=== PATIENT | male | born 1995 | race Hispanic/Latino ===

== ENCOUNTER 2021-05-25 07:38 | Emergency (ER) | payer SELFPAY ==
[2021-05-25 07:55] VITALS: BP 106/69
[2021-05-25 08:31] LABS: Bilirubin,Urine NEG (Negative); Blood,Urine NEG (Negative); Color,Urine Yellow (Yellow); Mucus,Urine FEW /HPF; Protein,Urine <15 mg/dL mg/dL (Negative); Urobilinogen,Urine < 2.0 mg/dL (<2.0)
[2021-05-25 08:57] LABS: WBC,Urine > 182.0 /HPF (0.0-6.0)
[2021-05-25] MEDS ORDERED: LIDOCAINE-MPF (1%) 10 MG/1 ML VIAL 5 ML INFILTRATI ONE (09:00)
[2021-05-25] MEDS ORDERED: AZITHROMYCIN 250 MG TAB PO ONE (09:01)
--- NOTE | 2021-05-25 09:29 | Emergency Department Report ---
ED Male HPI - General Chief complaint: Urogenital-Male Stated complaint: DISCHARGE PENIS Time Seen by Provider: 05/25/21 08:02 Source: patient Mode of arrival: Ambulatory Limitations: No Limitations - History of Present Illness Initial comments: 25-year-old white male with no past medical history presents to the emergency department for evaluation of 2-week history of worsening penile discharge with dysuria. He states that a few weeks ago he had unprotected sex with a new partner. He denies fever and abdominal pain. MD Complaint: penile discharge, dysuria -: Gradual, week(s) (2) Location: penis Radiation: none Severity scale (0 -10): 2 Quality: aching Consistency: intermittent Improves with: none Worsens with: urination new sexual partner discharge, dysuria. denies: swelling, mass, rash, urinary retention, blood in urine, fever, nausea/vomiting - Related Data Sexually active: Yes Previous Rx's Medication Instructions Recorded Last Taken Type HYDROcodone/APAP 5-325 [Hurricane 1 each PO Q6HR PRN #15 tablet 04/20/15 Unknown Rx 5/325] Ketorolac [Toradol] 10 mg PO Q6H PRN #15 tablet 04/20/15 Unknown Rx Ondansetron [Zofran Odt] 4 mg PO Q8HR #10 tab.rapdis 04/20/15 Unknown Rx Ibuprofen [Motrin] 600 mg PO Q8H PRN #20 tablet 04/24/15 Unknown Rx cephALEXin [Keflex] 500 mg PO Q6HR #28 capsule 04/24/15 Unknown Rx Allergies Allergy/AdvReac Type Severity Reaction Status Date / Time No Known Allergies Allergy Verified 04/19/15 22:21 ED Review of Systems ROS: Stated complaint: DISCHARGE PENIS Other details as noted in HPI Comment: All other systems reviewed and negative Constitutional: denies: chills, fever Eyes: denies: eye pain, eye discharge ENT: denies: ear pain, throat pain Respiratory: denies: shortness of breath Cardiovascular: denies: chest pain Endocrine: no symptoms reported Gastrointestinal: denies: abdominal pain, nausea, vomiting Genitourinary: dysuria, discharge. denies: urgency, frequency, hematuria, te sticular pain Musculoskeletal: denies: back pain Skin: denies: rash, lesions Neurological: denies: headache, weakness Psychiatric: denies: anxiety, depression Hematological/Lymphatic: denies: easy bleeding, easy bruising ED Past Medical Hx - Surgical History Additional Surgical History: Tonsillectomy. urethral surg to open age 5 - Social History Smoking Status: Current Some Day Smoker Substance Use Type: None - Medications Home Medications: Home Medications Medication Instructions Recorded Confirmed Last Taken Type HYDROcodone/APAP 5-325 [Hurricane 1 each PO Q6HR PRN #15 tablet 04/20/15 Unknown Rx 5/325] Ketorolac [Toradol] 10 mg PO Q6H PRN #15 tablet 04/20/15 Unknown Rx Ondansetron [Zofran Odt] 4 mg PO Q8HR #10 tab.rapdis 04/20/15 Unknown Rx Ibuprofen [Motrin] 600 mg PO Q8H PRN #20 tablet 04/24/15 Unknown Rx cephALEXin [Keflex] 500 mg PO Q6HR #28 capsule 04/24/15 Unknown Rx ED Physical Exam - General Limitations: No Limitations General appearance: alert, in no apparent distress - Head Head exam: Present: atraumatic, normocephalic - Eye Eye exam: Present: normal appearance. Absent: conjunctival injection - Neck Neck exam: Present: normal inspection. Absent: lymphadenopathy - Respiratory Respiratory exam: Absent: respiratory distress - Cardiovascular Cardiovascular Exam: Present: regular rate - GI/Abdominal GI/Abdominal exam: Present: soft, tenderness. Absent: distended - Back Exam Back exam: Present: normal inspection - Neurological Exam Neurological exam: Present: alert, oriented X3 - Psychiatric Psychiatric exam: Present: normal affect, normal mood - Skin Skin exam: Present: warm, dry, intact, normal color ED Course Vital Signs 05/25/21 07:43 Temperature 98.2 F Pulse Rate 74 Respiratory 16 Rate Blood Pressure 106/69 O2 Sat by Pulse 96 Oximetry ED Medical Decision Making - Medical Decision Making 25-year-old white male with no past medical history presents to the emergency department for evaluation of 2-week history of worsening penile discharge with dysuria. He states that a few weeks ago he had unprotected sex with a new partner. He denies fever and abdominal pain. Urine positive for uti. Sample sent for GC/Chlamydia. Because he has large amount of leukocyte esterase, he will be treated for GC/Chlamydia with Rocephin and Zitromycin. He was advised that he will be notified of any positive results so that he can get his partner treated and not to have unprotected sex prior to receiving results. He verbalized understanding of and agreement with plan of care. Critical care attestation.: If time is entered above; I have spent that time in minutes in the direct care of this critically ill patient, excluding procedure time. ED Disposition Clinical Impression: Penile discharge, Screen for STD (sexually transmitted disease) Disposition: HOME / SELF CARE / HOMELESS Is pt being admited?: No Does the pt Need Aspirin: No Condition: Stable Instructions: Urethritis, Adult, Safe Sex Additional Instructions: Practice safe sex with condom or no sex until you receive your results. Referrals: JOANN OSORIO MD [Referring] - 3-5 Days Time of Disposition: 09:28
== END 2021-05-25 09:54 | disposition home or self-care (01) ==
LOC: ED 07:38
DX: R36.9 Urethral discharge, unspecified (principal); Z11.3 Encounter for screening for infections with a predominantly sexual mode of transmission; F17.200 Nicotine dependence, unspecified, uncomplicated
CPT/HCPCS: 81001; 96372; 99283; J0696; J3490